=== PATIENT | male | born 1955 | race Caucasian/White ===

== ENCOUNTER 2021-06-20 06:00 | Outpatient (RCR) | payer MEDICARE, SELFPAY | END 2021-06-26 23:59 | disposition home or self-care (01) | LOC: GPT 06:00 | PROVIDERS: Referring Provider Nurse Practitioner Family; Visit Provider Nurse Practitioner Family | DX: M54.2 Cervicalgia (principal) | CPT/HCPCS: 97032; 97110; 97140; 97161; 97530 ==

== ENCOUNTER 2021-06-27 06:00 | Outpatient (RCR) | payer MEDICARE, SELFPAY | END 2021-07-26 23:59 | disposition home or self-care (01) | LOC: GPT 06:00 | PROVIDERS: Referring Provider Nurse Practitioner Family; Visit Provider Nurse Practitioner Family | DX: M54.2 Cervicalgia (principal) | CPT/HCPCS: 97032; 97110; 97140; 97530; 97760 ==

== ENCOUNTER → 2021-07-23 09:55 | Outpatient (BNVA) | payer MEDICARE, SELFPAY | PROVIDERS: Visit Provider Nurse Practitioner Family | DX: R05 Cough (principal) | CPT/HCPCS: 87635 ==